=== PATIENT | male | born 1955 | race Caucasian/White ===

== ENCOUNTER 2019-07-13 10:12 | Outpatient (CLI) | payer OTHER, SELFPAY ==
--- NOTE | 2019-07-13 10:15 | XR_ITS ---
WS: [id number] KUB, 07/13/2019 Clinical Data: RENAL CALCULUS Comparison: KUB, 07/12/2018 Findings: No abnormal intraabdominal masses are seen. There is no dilatated small bowel or evidence of obstruc tion. The right inferior pole renal calculus is 0.85 cm and the left inferior pole renal calculus is 0.91 c m. No ureteral calculi are seen. The true pelvis is unremarkable. XR/XR KUB [id number] Impression: 1. No change in right renal calculus. 2. Slight increase in size of left renal calculus.
== END 2019-07-13 10:13 | disposition home or self-care (01) ==
LOC: RAD 10:15
PROVIDERS: Family Provider Family Medicine; PCP Family Medicine; Visit Provider Urology
DX: N20.0 Calculus of kidney (principal)
CPT/HCPCS: 74018; 81001

== ENCOUNTER 2019-11-21 12:56 | Outpatient (CLI) | payer MEDICARE, OTHER, SELFPAY ==
--- NOTE | 2019-11-21 14:34 | PFTS_ITS ---
Date of Study:11/21/19 Date of Dictation: MECHANICS: Forced vital capacity (FVC) is normal. Forced expiratory volume in one second (FEV1) is normal. FEV1/FVC is normal. FLOW VOLUME LOOP: There is no significant scooping. LUNG VOLUMES: Preserved inspiratory capacity with reduction in expiratory reserve volume. DIFFUSING CAPACITY FOR CARBON MONOXIDE: Normal INTERPRETATION: The pulmonary function tests are normal. Lung volumes are suggestive of obesity related changes. Gas exchange (DLCO) is normal. MTDD
== END 2019-11-21 12:57 | disposition home or self-care (01) ==
PROVIDERS: Family Provider Family Medicine; PCP Family Medicine; Visit Provider Family Medicine
DX: R06.00 Dyspnea, unspecified (principal)
CPT/HCPCS: 94010; 94729

== ENCOUNTER 2020-05-01 07:53 | Outpatient (CLI) | payer OTHER, MEDICARE, SELFPAY ==
--- NOTE | 2020-05-01 08:00 | USCV_ITS ---
Luis Francis Jr Age: 64 Gender: M : 1955 Exam Date: 05/01/2020 08:41 Ordering Phys: Jessica Mujica MD ([email or web address]) Technologist: Noris Vogt Exam Location[place] [facility] [place] Indication: SOB, DYSPNEA BP: 140 / 85 HR: 63 Rhythm: Sinus Technical Quality: Adequate MEASUREMENTS (Male / Female) Normal Values 2D ECHO LV Diastolic Diameter PLAX 4.6 cm 4.2 - 5.9 / 3.9 - 5.3 cm LV Systolic Diameter PLAX 2.5 cm LV Chamber Size 4.5 cm IVS Diastolic Thickness 1.1 cm 0.6 - 1.0 / 0.6 - 0.9 cm IVS Systolic Thickness 2.1 cm LVPW Diastolic Thickness 1.4 cm 0.6 - 1.0 / 0.6 - 0.9 cm LVPW Systolic Thickness 1.6 cm RV Chamber Size 3.5 cm LVOT Diameter 2.0 cm LV Ejection Fraction 2D Teich 76.9 % LV Ejection Fraction MOD 2C 45.1 % LV Ejection Fraction 2C AL 48.6 % LA Diameter 4.5 cm LA Width 3.5 cm LA Height 4.4 cm RA Width 3.4 cm RA Height 3.9 cm Aorta at Sinotubular Diameter 4.0 cm M-MODE LV Diastolic Diameter MM 5.5 cm 4.2 - 5.9 / 3.9 - 5.3 cm LV Systolic Diameter MM 3.6 cm LV Ejection Fraction MM Teich 62.7 % IVS Diastolic Thickness MM 1.4 cm 0.6 - 1.0 / 0.6 - 0.9 cm IVS Systolic Thickness MM 1.4 cm LVPW Diastolic Thickness MM 1.6 cm 0.6 - 1.0 / 0.6 - 0.9 cm LVPW Systolic Thickness MM 1.8 cm RV Diastolic Diameter MM 1.7 cm Aortic Annulus Diameter 3.9 cm LA Ao Ratio MM 1.3 MV E Point Septal Separation 0.7 cm DOPPLER AV Peak Velocity 171.0 cm/s LVOT Peak Velocity 97.0 cm/s AV Area Cont Eq vti 2.1 cm squared AV Area Cont Eq pk 1.9 cm squared MV Area PHT 3.2 cm squared Mitral E to A Ratio 0.8 MV E' Velocity 41.5 cm/s Mitral E to MV E' Ratio 9.5 Mitral E to LV E' Lateral Ratio 9.6 Mitral E to LV E' Septal Ratio 9.5 TR Peak Velocity 168.8 cm/s TR Peak Gradient 11.4 mmHg TR Mean Velocity 129.9 cm/s TR Mean Gradient 7.5 mmHg TR Velocity Time Integral 52.0 cm TV Peak E Velocity 64.0 cm/s Right Atrial Pressure 3.0 mmHg Pulmonary Artery Systolic Pressu 14.4 mmHg PV Peak Velocity 73.0 cm/s RV Acceleration Time 0.1 s RV Ejection Time 0.4 s RV AcT/ET 0.3 FINDINGS Left Ventricle Normal left ventricular size and systolic function, EF 55 %. Grade I/IV diastolic dysfunction (abnormal relaxation filling pattern), normal to mildly elevated filling pressures. Right Ventricle The right ventricle is normal in size and function. Right Atrium The right atrium is normal in size. Left Atrium Mildly increased left atrial size. Mitral Valve Thickened mitral valve. Aortic Valve Thickened aortic valve. Tricuspid Valve No gross abnormalities noted Pulmonic Valve Pulmonic valve not well visualized. Pericardium Normal pericardium without effusion. Aorta Plaque seen in the ascending aorta. CONCLUSIONS Normal left ventricular size and systolic function, EF 55 %. Grade I/IV diastolic dysfunction (abnormal relaxation filling pattern), normal to mildly elevated filling pressures. Mildly increased left atrial size. Thickened aortic and mitral valves. There is no pericardial effusion. There are no intracardiac masses. No previous study is available for comparison. Dr Jessica Mujica MD [facility] (Electronically Signed) Final Date: 01 May 2020 16:57 S
--- NOTE | 2020-05-01 08:18 | ECG_ITS ---
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 Interpretive Statements NAME OF STUDY: EXERCISE SESTAMIBI STRESS TEST INDICATION: Shortness of breath Baseline blood pressure of 133/91 mm Hg, heart rate of 70 beats per minute and oxygen saturation 95%. EKG showed normal sinus rhythm, normal axis with normal ST-Ts. The patient exercised for 8 minutes on a modified Antwan protocol. Patient attained a maximum heart rate of 132 beats per minute(85% of the maximum predicted heart rate) with a blood pressure at the peak exercise of 235/101 mm Hg. The EKG at the peak exercise revealed sinus tachycardia with no significant ST-T wave chnages. Patient did not have any chest pain or any significant arrhythmis with the exercise. The study was terminated due to exertional fatigue, dyspnea and protocol completion. During the recovery phase, there were no new changes. Blood pressure at the end of the recovery phase was 168/107 mm Hg with a heart rate of 72 beats per minute and oxygen saturation 94%. CONCLUSION: 1. Normal EKG response to treadmill exercise. 2. No exercise-induced chest pain or cardiac arrhythmia. 3. Good exercise tolerance, attained a maximum of 9.1 METs. Maximum VO2 of 31.8 mL/kg/min. 4. Baseline normal blood pressure with hypertensive response to exercise. 5. Perfusion scan will be documented separately. Electronically Signed On 05-02-2020 8:19:21 CLOTH WINDER by Vicky Miller M.D. [id number]
--- NOTE | 2020-05-01 08:19 | NMCV_ITS ---
NM jameel perf SPECT r/s* [id number] Luis Francis Jr Age: 64 Gender: M : 1955 Exam Date: 05/01/2020 09:19 Ordering Phys: Jessica Mujica MD ([email or web address]) Technologist: EDWARD Qiu Exam Location: [facility] Indications: SOB DYSPNEA STRESS TEST Please see separate stress test report in Ephiphany for full findings IMAGE PROTOCOL Rest/Stress 1 Exercise Day Radiopharmaceutical Dose (mCi) Administration Site Administered by Rest: Tc-99m 10.5 IV EDWARD Herrera Sestamibi Stress:Tc-99m 32.6 IV EDWARD Herrera Sestamibi Rest: 01-May-2020 60 Discovery 630 Stress: 01-May-2020 30 Discovery 630 Radiopharmaceutical was injected at 85 % maximum heart rate. Images obtained in supine and prone position. SPECT RESULTS Technical Quality: Excellent Raw Data Analysis: Normal Image Corrections: No attenuation or motion correction applied Summed Stress Score: 0 Summed Rest Score: 2 Summed Difference Score: 0 PERFUSION FINDINGS Patchy areas of slightly decreased tracer uptake in the anteroseptal and inferolateral wall regions. No significant reversibility was noted in these regions. FUNCTIONAL RESULTS (calculated via Gated SPECT) Stress Image LV EF (%): 53 Stress EDV (mL):133 TID: 0.97 Stress ESV (mL):62 FUNCTIONAL FINDINGS: Segmental wall motion analysis revealing mild hypokinesia of the LV apex IMPRESSIONS 1. Myocardial perfusion imaging revealing patchy areas of persistent decreased tracer uptake in the anteroseptal and inferolateral wall regions, suggestive of medical scarring versus attenuation artifacts. 2. Normal LV ejection fraction of 53%. 3. Wall motion normalities as mentioned above. 4. Mildly dilated LV cavity with an end-systolic volume of 62 mL. No significant coronary ischemia, based on the above finding Dr Jessica Mujica MD [facility] (Electronically Signed) Final Date: 01 May 2020 16:25 S
[2020-05-01 10:03] VITALS: BMI 31.9
[2020-05-01 10:36] VITALS: BP 168/107; PULSE 70
== END 2020-05-01 07:54 | disposition home or self-care (01) ==
LOC: CDL 07:59
PROVIDERS: PCP Family Medicine; Visit Provider Internal Medicine Cardiovascular Disease
DX: R06.02 Shortness of breath (principal); R06.00 Dyspnea, unspecified; I08.0 Rheumatic disorders of both mitral and aortic valves
CPT/HCPCS: 78452; 93017; 93306; A9500

== ENCOUNTER → 2021-09-15 08:33 | Outpatient (BNVA) | payer MEDICARE, SELFPAY | PROVIDERS: PCP Family Medicine; Visit Provider Internal Medicine Critical Care Medicine | DX: G47.10 Hypersomnia, unspecified (principal); J42 Unspecified chronic bronchitis; F17.210 Nicotine dependence, cigarettes, uncomplicated; E78.5 Hyperlipidemia, unspecified; I10 Essential (primary) hypertension | CPT/HCPCS: 99204 ==

== ENCOUNTER 2021-10-16 20:00 | Outpatient (CLI) | payer MEDICARE, SELFPAY | END 2021-10-16 20:01 | disposition home or self-care (01) | LOC: SLEEP 10-17 08:24 | PROVIDERS: PCP Family Medicine; Visit Provider Internal Medicine Critical Care Medicine | DX: G47.33 Obstructive sleep apnea (adult) (pediatric) (principal) | CPT/HCPCS: G0399 ==

== ENCOUNTER 2021-10-28 09:12 | Outpatient (CLI) | payer MEDICARE, SELFPAY ==
--- NOTE | 2021-10-28 09:26 | CT_ITS ---
WS: [id number] LDCT LUNG CANCER SCREENING TECHNIQUE: Noncontrast CT of the chest with coronal and sagittal reformatted images. CLINICAL INFORMATION: Lung cancer screening COMPARISON: None. DLP: 86.70 mGy.cm DIvol: Mean CTDIvol: 1.60 (mGy) All CT scans at [facility] use at least one of these dose optimization techniques: automat ed exposure control; mA and/or kV adjustment per patient size (includes targeted exams where dose is matched to clinical indication); or iterative reconstruction. FINDINGS: Tiny 3 mm noncalcified nodule subpleural LEFT upper lobe. No other suspicious pulmonary parenchymal o pacities. Aortic calcification. No mediastinal or hilar lymphadenopathy. Coronary calcification. No a xillary lymphadenopathy. Adrenal glands are normal. Normal GE junction. Hypertrophic changes thoracic spine. CT/CT lung screening [id number] IMPRESSION: LUNG-RADS: 2-Benign Appearance or Behavior FOLLOW UP: 12 Month: Continue annual screening with LDCT
== END 2021-10-28 09:13 | disposition home or self-care (01) ==
PROVIDERS: PCP Family Medicine; Visit Provider Internal Medicine Critical Care Medicine
DX: Z12.31 Encounter for screening mammogram for malignant neoplasm of breast (principal); F17.210 Nicotine dependence, cigarettes, uncomplicated
CPT/HCPCS: 71271

== ENCOUNTER → 2021-11-13 08:46 | Outpatient (BNVA) | payer MEDICARE, SELFPAY | PROVIDERS: PCP Family Medicine; Visit Provider Internal Medicine Critical Care Medicine | DX: J42 Unspecified chronic bronchitis (principal); G47.33 Obstructive sleep apnea (adult) (pediatric); F17.210 Nicotine dependence, cigarettes, uncomplicated; I10 Essential (primary) hypertension; E78.5 Hyperlipidemia, unspecified | CPT/HCPCS: 99214 ==

== ENCOUNTER 2021-12-08 20:00 | Outpatient (CLI) | payer MEDICARE, SELFPAY | END 2021-12-08 20:01 | disposition home or self-care (01) | LOC: SLEEP 12-09 06:40 | PROVIDERS: PCP Family Medicine; Visit Provider Internal Medicine Critical Care Medicine | DX: G47.33 Obstructive sleep apnea (adult) (pediatric) (principal) | CPT/HCPCS: 95811 ==

== ENCOUNTER → 2022-02-19 09:01 | Outpatient (BNVA) | payer MEDICARE, SELFPAY | PROVIDERS: PCP Family Medicine; Visit Provider Internal Medicine Critical Care Medicine | DX: J42 Unspecified chronic bronchitis (principal); G47.33 Obstructive sleep apnea (adult) (pediatric); F17.210 Nicotine dependence, cigarettes, uncomplicated; R53.83 Other fatigue; R41.89 Other symptoms and signs involving cognitive functions and awareness | CPT/HCPCS: 99214 ==

== ENCOUNTER → 2022-03-26 09:27 | Outpatient (BNVA) | payer MEDICARE, SELFPAY | PROVIDERS: PCP Family Medicine; Visit Provider Internal Medicine Critical Care Medicine | DX: J41.0 Simple chronic bronchitis (principal); G47.33 Obstructive sleep apnea (adult) (pediatric); F17.210 Nicotine dependence, cigarettes, uncomplicated | CPT/HCPCS: 99214 ==

== ENCOUNTER → 2022-04-01 08:30 | Outpatient (BNVA) | payer MEDICARE, SELFPAY | PROVIDERS: PCP Family Medicine; Visit Provider Otolaryngology | DX: G47.33 Obstructive sleep apnea (adult) (pediatric) (principal); H60.543 Acute eczematoid otitis externa, bilateral; H61.22 Impacted cerumen, left ear; F18.10 Inhalant abuse, uncomplicated; F17.210 Nicotine dependence, cigarettes, uncomplicated | CPT/HCPCS: 31575; 69210; 99204 ==

== ENCOUNTER 2022-08-10 06:56 | Outpatient (CLI) | payer OTHER, SELFPAY ==
--- NOTE | 2022-08-10 08:26 | USCV_ITS ---
Luis Francis Jr Age: 67 Gender: M : 1955 Exam Date: 08/10/2022 08:58 Ordering Phys: Mariajose Brewer Technologist: CT Exam Location: [facility] [place] Indication: bruit Risk Factors: Previous Vascular Surgery: Right Brachial BP: / Left Brachial BP: / Right Left Velocity (cm/s) Spectral Plaque Velocity (cm/s) Spectral Plaque Syst/Diast Broadening Syst/Diast Broadening 87.10/ 19.80 Prox CCA 61.00 / 18.80 76.90/ 18.60 Mid CCA 66.90 / 20.60 71.50/ 19.40 Distal CCA 55.60 / 14.50 121.30/37.50 Prox ICA 43.50 / 18.10 74.50/ 26.80 Mid ICA 58.60 / 18.70 61.80/ 20.20 Distal ICA 41.90 / 16.80 96.30 ECA 74.60 1.39 ICA/CCA 0.88 Antegrade Vertebral Antegrade 46.00/ 18.80 cm/s 34.20/ 14.80 cm/s Tri Subclavian Tri 97.50 153.8 0 FINDINGS Comparison: none available. Diffuse bilateral scattered calcified plaque and intimal thickening throughout the common carotid arteries and extending through the bifurcation. No significant elevation of systolic or diastolic velocities. Mild elevation of velocity right ICA. Anegrade vertebral arteries. CONCLUSIONS Bilateral ICA stenosis less than 50%. Mild bilateral carotid atherosclerosis. Dr. Mini Lewis DO (Electronically Signed) Final Date: 10 August 2022 11:34 S
== END 2022-08-10 06:57 | disposition home or self-care (01) ==
LOC: RAD 07:02
PROVIDERS: PCP Family Medicine; Visit Provider Nurse Practitioner
DX: R53.83 Other fatigue (principal); R09.89 Other specified symptoms and signs involving the circulatory and respiratory systems; I65.23 Occlusion and stenosis of bilateral carotid arteries
CPT/HCPCS: 93880

== ENCOUNTER → 2022-09-23 08:55 | Outpatient (BNVA) | payer MEDICARE, SELFPAY | PROVIDERS: PCP Family Medicine; Visit Provider Internal Medicine Pulmonary Disease | DX: G47.33 Obstructive sleep apnea (adult) (pediatric) (principal); J42 Unspecified chronic bronchitis; F17.210 Nicotine dependence, cigarettes, uncomplicated | CPT/HCPCS: 99214 ==

== ENCOUNTER 2022-10-26 11:02 | Outpatient (CLI) | payer MEDICARE, SELFPAY ==
--- NOTE | 2022-10-26 11:00 | CT_ITS ---
WS: [id number] LDCT LUNG CANCER SCREENING TECHNIQUE: Noncontrast CT of the chest with coronal and sagittal reformatted images. CLINICAL INFORMATION: Lung cancer screening COMPARISON: October 28, 2021 DLP: 90.91 mGy.cm DIvol: Mean CTDIvol: 1.80 (mGy) All CT scans at [facility] use at least one of these dose optimization techniques: automat ed exposure control; mA and/or kV adjustment per patient size (includes targeted exams where dose is matched to clinical indication); or iterative reconstruction. FINDINGS: Tiny 3-4 mm noncalcified nodule subpleural LEFT upper lobe is unchanged. Previous. No new suspicious pulmonary parenchymal opacities. No mediastinal or hilar lymphadenopathy. Parenchymal scarring RIGHT middle lobe with subsegmental atelectasis. Coronary calcification. Aortic calcification. Normal caliber thoracic aorta. No axillary lymphadenopa thy. Adrenal glands are normal. Normal GE junction. Hypertrophic changes thoracic spine. Small LEFT r enal cysts. CT/CT lung screening [id number] IMPRESSION: LUNG-RADS: 2-Benign Appearance or Behavior FOLLOW UP: 12 Month: Continue annual screening with LDCT
== END 2022-10-26 11:03 | disposition home or self-care (01) ==
PROVIDERS: PCP Family Medicine; Visit Provider Internal Medicine Pulmonary Disease
DX: Z12.2 Encounter for screening for malignant neoplasm of respiratory organs (principal); F17.210 Nicotine dependence, cigarettes, uncomplicated; G47.33 Obstructive sleep apnea (adult) (pediatric); J42 Unspecified chronic bronchitis
CPT/HCPCS: 71271

== ENCOUNTER 2023-03-01 08:42 | Emergency (ER) | payer OTHER, SELFPAY ==
[2023-03-01] VITALS (20 sets, daily range): BP systolic 138–218; BP diastolic 82–126; PULSE 72–88; RESP 14–33; TEMP 37; O2SAT 92–95; BMI 18.0
--- NOTE | 2023-03-01 08:43 | ECG_ITS ---
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 Measurements Intervals [place] Rate: 82 P: 46 ND: 142 QRS: 41 QRSD: 105 T: 110 QT: 358 QTc: 419 Interpretive Statements SINUS RHYTHM POSSIBLE LEFT ATRIAL ENLARGEMENT [-0.1mV P-WAVE IN V1/V2] MODERATE ST DEPRESSION [0.05+ mV ST DEPRESSION] ABNORMAL QRS-T ANGLE [QRS-T AXIS DIFFERENCE > 60] No previous ECG available for comparison Electronically Signed On 03-01-2023 9:16:56 CDT by Vicky Miller M.D. [email or web address]/OM/[id number]
--- NOTE | 2023-03-01 08:43 | XR_ITS ---
WS: [id number] PORTABLE CHEST HISTORY: cp COMPARISON: 01/25/2017 Moderate hyperinflation and chronic emphysema. No mass or pneumonia. No pleural effusion or pneumotho rax. Cardiac size: Normal. Mediastinum/Aorta: Mild atherosclerosis aorta. Mild AC joint arthritis. IMPRESSION: Chronic emphysema. No pneumonia.
--- NOTE | 2023-03-01 08:59 | W.ED.CHESTPA ---
HPI - Chest Pain General: Chief Complaint: Chest Pain Stated Complaint: Chest pain Time Seen by Provider: 03/01/23 08:44 Source: patient Mode of arrival: ambulatory Limitations: no limitations History of Present Illness: 67-year-old male states been having chest pain over the last week states had some pressure pain that goes down his arm states pain is currently resolved he denies any worsening or improving factors. No known history of heart disease. Has a history of hypertension along with high cholesterol. Associated symptoms: Deny abdominal pain, dyspnea, fever(s), nausea or vomiting Review of Systems Const: Denies: fever(s), chills, body aches or change in appetite ENMT: Denies: throat pain or dental pain Card: Reports: chest pain Resp: Denies: dyspnea GI: Denies: abdominal pain, nausea, vomiting or diarrhea : Denies: dysuria Musc: Denies: neck pain or back pain Skin/Breast: Denies: rash Neuro: Denies: headache(s) PFSH ED PFSH: Medical History Abuse of smoked substance Benign essential HTN CARVALHO (dyspnea on exertion) Dyslipidemia (high LDL; low HDL) Renal calculus, bilateral Uric acid urolithiasis Surgical History History of hand surgery RIGHT History of rotator cuff surgery BILATERAL Hx of cataract surgery PROSTHETIC LENS PLACED Hx of circumcision Family History Other CAD (coronary artery disease) Diabetes Pacemaker Social History Smoking and tobacco status: current every day smoker (1.5 ppd) cigarettes Packs smoked per day: 1.5 Years cigarettes smoked: 50 [ Other cigarette details: started at age 14 years.] Alcohol intake: current Substance/Drug Use: never Adopted: No Caregiver/support person: No Lives independently: No Household members: spouse Marital status: Current occupational status: employed Physical Exam Const: COMMON NORMALS: patient oriented x3 HENMT: COMMON NORMALS: normocephalic and atraumatic HEAD & SCALP: normocephalic and atraumatic Eye: COMMON NORMALS: Equal, round and reactive pupils present and EOMs intact bilaterally PUPIL: Yes Equal, round and reactive pupils present Neck/C-Spine: COMMON NORMALS: full ROM and supple Chest: COMMONS NORMALS: normal inspection of the chest and normal palpation of entire chest wall Resp: COMMON NORMALS: normal respiratory effort, No retractions, No use of accessory muscles and clear to auscultation bilaterally AUSCULTATION: clear to auscultation bilaterally Cardio: COMMON NORMALS: regular rate, regular rhythm and No murmurs present (Cardio) RATE: regular rate RHYTHM: regular rhythm GI: COMMON NORMALS: Normal to inspection, nondistended, normoactive bowel sounds present, Soft to palpation, non-tender and no masses PALPATION: Yes Soft to palpation Extremity: COMMON NORMALS: normal to inspection and full ROM Neuro: COMMON NORMALS: patient oriented x3, moves all extremities and no focal motor deficits Psych: COMMON NORMALS: mental status grossly normal, Normal thought process present and cooperative THOUGHT PROCESS: Normal thought process present Skin: COMMON NORMALS: no rashes or lesions noted and no wounds GENERAL SKIN EXAM: no rashes or lesions noted Course Vital Signs: Vital signs: Vital Signs Temperature 98.6 F 03/01/23 08:49 Pulse Rate 74 03/01/23 10:35 Respiratory Rate 27 H 03/01/23 10:35 Blood Pressure 138/82 03/01/23 10:35 Pulse Oximetry 93 03/01/23 10:35 Oxygen Delivery Me thod Room Air 03/01/23 08:49 MDM - Chest Pain Medical Decision Making Patient presents here with chest pain has been going on for weeks has been pain-free here both his heart enzymes here are normal. 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 Lab Data I reviewed the patient's lab results. 03/01/23 08:52 03/01/23 08:52 Laboratory Results WBC 11.04 10^3/uL (3.29-11.43) 03/01/23 08:52 RBC 6.32 10^6/uL (3.85-5.65) H 03/01/23 08:52 Hgb 19.50 g/dL (11.27-16.99) H 03/01/23 08:52 Hct 59.0 % (37-53) H 03/01/23 08:52 MCV 93.4 fl (82-101) 03/01/23 08:52 MCH 30.9 pg (27-33) 03/01/23 08:52 MCHC 33.1 g/dL (30-55) 03/01/23 08:52 RDW 13.7 % (12.1-15.1) 03/01/23 08:52 Plt Count 210 10^3/cmm (157-399) 03/01/23 08:52 MPV 10.1 fL (7.4-10.4) 03/01/23 08:52 Neut % (Auto) 72.5 % 03/01/23 08:52 Lymph % (Auto) 18.6 % 03/01/23 08:52 [place] % (Auto) 6.0 % 03/01/23 08:52 Eos % (Auto) 1.4 % 03/01/23 08:52 Baso % (Auto) 0.7 % 03/01/23 08:52 Neut # (Auto) 8.01 10^3/uL (1.8-7.7) H 03/01/23 08:52 Lymph # (Auto) 2.1 10^3/uL (0.8-4.8) 03/01/23 08:52 [place] # (Auto) 0.7 10^3/uL (0.2-0.9) 03/01/23 08:52 Eos # (Auto) 0.2 10^3/uL (0.0-0.8) 03/01/23 08:52 Baso # (Auto) 0.1 10^3/uL (0.0-0.1) 03/01/23 08:52 Nucleated RBC % (auto) 0 % 03/01/23 08:52 Nucleated RBCs # 0.0 /100WBC 03/01/23 08:52 PT 12.20 SECONDS (12.1-14.9) 03/01/23 08:52 INR 0.88 (0.8-1.2) 03/01/23 08:52 Sodium 134 mmol/L (136-145) L 03/01/23 08:52 Potassium 3.8 mmol/L (3.5-5.1) 03/01/23 08:52 Chloride 101 mmol/L (98-107) 03/01/23 08:52 Carbon Dioxide 22 mmol/L (22-29) 03/01/23 08:52 Anion Gap 14.8 (5-19) 03/01/23 08:52 BUN 23 mg/dL (8-23) 03/01/23 08:52 Creatinine 1.0 mg/dL (0.7-1.2) 03/01/23 08:52 GFR Calculation 74.1 mL/min (90-130) L 03/01/23 08:52 Glucose 198 mg/dL (65-115) H 03/01/23 08:52 Calculated Osmolality 287 mOsm/kg (285-295) 03/01/23 08:52 Calcium 9.0 mg/dL (8.5-10.5) 03/01/23 08:52 Total Bilirubin 0.5 mg/dL (0.15-1.2) 03/01/23 08:52 AST 13 U/L (0-40) 03/01/23 08:52 ALT 18 U/L (0-41) 03/01/23 08:52 Alkaline Phosphatase 78 U/L (40-130) 03/01/23 08:52 Troponin T Baseline 13 ng/L (0-15) 03/01/23 08:52 Troponin T 120 Minute 14.84 ng/L (0-15) 03/01/23 10:39 Total Protein 7.1 g/dL (6.6-8.7) 03/01/23 08:52 Albumin 4.2 g/dL (3.5-5.2) 03/01/23 08:52 Globulin 2.9 g/dL (1.3-4.6) 03/01/23 08:52 All radiology interpretation(s) finalized by discharge EKG Data EKG 1: I personally reviewed and interpreted this EKG as follows: EKG interpretation date: 03/01/23 EKG interpretation time: 08:45 Interpretation: nsr hr [address] or t wave abnormalities qrs 105 qtc 396 Discharge Plan Discharge Patient Disposition: Home Clinical Impression: Chest pain Condition: Stable Prescriptions: No Action oxycodone-acetaminophen [Percocet] 5-325 mg tablet 1 tab PO TID PRN (Reason: Pain) armodafinil 200 mg tablet 200 mg PO QAM PRN (Reason: unknown) [facility] Vits See Rx Instructions .ROUTE .COMPLEX Rx Instructions: takes 4 differnet types of vitamins from [facility] (pt unsure what the names of them are, states not had in a few days) trazodone 100 mg Tablet 50 mg PO BEDTIME hydrochlorothiazide 25 mg Tablet 25 mg PO QAM Trt (Otc Testosterone Therapy) See Rx Instructions .ROUTE .COMPLEX Rx Instructions: DIRECTED EVERY 7 DAYS Discharge Orders: Discharge ED (Routine); Ordered 03/01/23 Ordered By: Simone Mederos Referrals: Jessica Mujica MD [Physician] - 1-3 days Mariajose Brewer FNP [Primary Care Provider] - Discharge Diet: Advance as tolerated Discharge Activity: Resume usual activity Patient Instructions: Chest Pain (ED) Coding Level of Care Code ED 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
[2023-03-01 09:02] LABS: Basophils # 0.1 10^3/uL (0.0-0.1); Basophils % 0.7 %; Eosinophils # 0.2 10^3/uL (0.0-0.8); Eosinophils % 1.4 %; Lymphocytes # 2.1 10^3/uL (0.8-4.8); Lymphocytes % 18.6 %; Mean Corpuscular HGB Conc 33.1 g/dL (30-55); Mean Corpuscular Hemoglobin 30.9 pg (27-33); Mean Corpuscular Volume 93.4 fl (82-101); Mean Platelet Volume 10.1 fL (7.4-10.4); Monocytes # 0.7 10^3/uL (0.2-0.9); Neutrophils # 8.01 10^3/uL (1.8-7.7); Neutrophils % 72.5 %; Nucleated Red Blood Cells % 0 %; Platelet Count 210 10^3/cmm (157-399); Red Blood Count 6.32 10^6/uL (3.85-5.65); Red Cell Distribution Width 13.7 % (12.1-15.1); White Blood Count 11.04 10^3/uL (3.29-11.43)
[2023-03-01 09:15] LABS: INR 0.88 (0.8-1.2)
[2023-03-01] MEDS: hyDRALAzine 20 mg/mL INJ 1 mL 10 MG IVP (09:16)
[2023-03-01 09:21] LABS: Troponin(5th) Baseline 13 ng/L (0-15)
[2023-03-01 09:24] LABS: Alanine Aminotransferase 18 U/L (0-41); Albumin Level 4.2 g/dL (3.5-5.2); Alkaline Phosphatase 78 U/L (40-130); Anion Gap 14.8 (5-19); Aspartate Amino Transferase 13 U/L (0-40); Blood Urea Nitrogen 23 mg/dL (8-23); Carbon Dioxide 22 mmol/L (22-29); Chloride 101 mmol/L (98-107); Globulin 2.9 g/dL (1.3-4.6); Glomerular Filtration Rate 74.1 mL/min (90-130); Glucose 198 mg/dL (65-115); Osmolality Calculated 287 mOsm/kg (285-295); Potassium 3.8 mmol/L (3.5-5.1); Sodium 134 mmol/L (136-145); Total Bilirubin 0.5 mg/dL (0.15-1.2); Total Protein 7.1 g/dL (6.6-8.7)
[2023-03-01] MEDS: labetalol 5 mg/mL SDV 20mL 10 MG IVP (10:21)
--- NOTE | 2023-03-01 10:43 | ECG_ITS ---
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 Measurements Intervals [place] Rate: 70 P: 32 [place]: 142 QRS: 21 QRSD: 109 T: 147 QT: 413 QTc: 446 Interpretive Statements SINUS RHYTHM POSSIBLE LEFT ATRIAL ENLARGEMENT [-0.1mV P-WAVE IN V1/V2] ST DEVIATION AND MODERATE T-WAVE ABNORMALITY, CONSIDER LATERAL ISCHEMIA [-0.1+ mV T-WAVE IN I/aVL/V5/V6] Compared to ECG 03/01/2023 08:45:35 T-wave abnormality now present Possible ischemia now present ST (T wave) deviation no longer present Electronically Signed On 03-01-2023 21:37:45 CDT by Vicky Miller M.D. [id number]
--- NOTE | 2023-03-01 10:58 | PC.PHAR ---
PT STATES HE TAKES CARE OF HIS OWN MEDICATIONS-PT STATES HE TAKES NUVIGEL 200MG QD PRN- pt states takes 4 differnet types of vitamins from [facility] and [employer] (pt unsure what the names of them are, states not had in a few days)-pt states he uses some kind of trt (testosterone therapy) states he uses once a week states not taken in a month states waiting for it to come in the mail-notes are made in the pharmacy comments-
[2023-03-01 11:20] LABS: Troponin 5 2HR 14.84 ng/L (0-15); Troponin 5 2HR Delta 1.84 ABS# (0-10)
--- NOTE | 2023-03-01 11:48 | PC.SOCIAL ---
Cardiology Referral Referral message sent to clinic; clinic to contact patient with appt date/time.
== END 2023-03-01 11:42 | disposition home or self-care (01) ==
PROVIDERS: Emergency Provider Emergency Medicine; PCP Nurse Practitioner
DX: R07.9 Chest pain, unspecified (principal); F17.210 Nicotine dependence, cigarettes, uncomplicated; I10 Essential (primary) hypertension; E78.5 Hyperlipidemia, unspecified
CPT/HCPCS: 36415; 71045; 80053; 84484; 85025; 85610; 93005; 96374; 96375; 99285; J0360; J3490

== ENCOUNTER → 2023-03-08 10:24 | Outpatient (BNVA) | payer OTHER, SELFPAY | PROVIDERS: PCP Nurse Practitioner; Visit Provider Internal Medicine Cardiovascular Disease | DX: R07.9 Chest pain, unspecified (principal); I10 Essential (primary) hypertension; E78.5 Hyperlipidemia, unspecified; R06.00 Dyspnea, unspecified; G47.33 Obstructive sleep apnea (adult) (pediatric); F17.210 Nicotine dependence, cigarettes, uncomplicated | CPT/HCPCS: 99214 ==

== ENCOUNTER → 2023-04-05 08:51 | Outpatient (BNVA) | payer OTHER, SELFPAY | PROVIDERS: PCP Nurse Practitioner; Visit Provider Internal Medicine Pulmonary Disease | DX: G47.33 Obstructive sleep apnea (adult) (pediatric) (principal); F17.210 Nicotine dependence, cigarettes, uncomplicated; J41.0 Simple chronic bronchitis; Z99.89 Dependence on other enabling machines and devices | CPT/HCPCS: 99214 ==

== ENCOUNTER 2023-04-28 10:18 | Outpatient (CLI) | payer OTHER, SELFPAY ==
--- NOTE | 2023-04-28 10:23 | CT_ITS ---
WS: [id number] CT HEAD TECHNIQUE: Noncontrast CT of the head obtained from the skullbase to the vertex. CLINICAL INFORMATION: BURNING MOUTH SYNDROME COMPARISON: None. DLP: 1134.[address] scans at [facility] use at least one of these dose optimization techniques: automated e xposure control; mA and/or kV adjustment per patient size (includes targeted exams where dose is matc hed to clinical indication); or iterative reconstruction. FINDINGS: No evidence of intracranial hemorrhage or mass effect. Ventricular system and basal cisterns are sweeney nt. Mild small vessel changes with moderate parenchymal volume loss. No extra-axial fluid collections . No evidence of mass or mass effect. Mild vascular calcification. Paranasal sinuses are well aerated. Mild mucosal thickening in the mastoid air cells. IMPRESSION: 1. No evidence of intracranial hemorrhage or mass effect. 2. Mild small vessel changes. Moderate parenchymal volume loss. 3. Mild intracranial vascular calcification. 4. No acute intracranial findings.
== END 2023-04-28 10:19 | disposition home or self-care (01) ==
LOC: RAD 10:19
PROVIDERS: PCP Nurse Practitioner; Visit Provider Nurse Practitioner
DX: R20.8 Other disturbances of skin sensation (principal); I67.2 Cerebral atherosclerosis
CPT/HCPCS: 70450

== ENCOUNTER → 2023-06-09 12:40 | Outpatient (BNVA) | payer OTHER, SELFPAY | PROVIDERS: PCP Nurse Practitioner; Visit Provider Nurse Practitioner Family | DX: I10 Essential (primary) hypertension (principal); R07.9 Chest pain, unspecified; F17.210 Nicotine dependence, cigarettes, uncomplicated | CPT/HCPCS: 99214 ==

== ENCOUNTER → 2023-06-15 09:16 | Outpatient (BNVA) | payer OTHER, SELFPAY | PROVIDERS: PCP Nurse Practitioner; Referring Provider Nurse Practitioner; Visit Provider Surgery | DX: Z12.11 Encounter for screening for malignant neoplasm of colon (principal) | CPT/HCPCS: 99203 ==

== ENCOUNTER 2023-08-02 08:17 | Outpatient (CLI) | payer MEDICARE, SELFPAY ==
--- NOTE | 2023-08-02 08:22 | USCV_ITS ---
Luis Francis Age: 68 Gender: M : 1955 Exam Date: 08/02/2023 09:05 Ordering Phys: Mariajose Brewer Technologist: [place] [facility] [place] HISTORY: Diameter (cm) AP x Transverse x Length Velocity (cm/s) Waveform Prox Aorta: 2.10 x 2.00 x 84.40 Mid Aorta: 2.00 x 2.00 x 75.60 Distal Aorta: 2.50 x 2.60 x 73.40 Right Iliac Prox: 1.70 x 1.70 x 79.80 Left Iliac Prox: 1.80 x 1.60 x 67.70 Stent Prox Landing x x Aneurysmal Sac Max x x Lt Lat Sac Dim Rt Lat Sac Dim Stent Dist Landing x x Right Iliac Stent x x Left Iliac Stent x x Right Renal Art Left Renal Art FINDINGS: CONCLUSIONS Slightly ectatic Distal abdominal aorta measuring 2.5 x 2.6cm Normal iliac arteries Ashu Amato MD (Electronically Signed) Final Date: 02 August 2023 11:07 S
== END 2023-08-02 08:18 | disposition home or self-care (01) ==
LOC: RAD 08:18
PROVIDERS: PCP Nurse Practitioner; Visit Provider Nurse Practitioner
DX: Z13.6 Encounter for screening for cardiovascular disorders (principal); I77.811 Abdominal aortic ectasia
CPT/HCPCS: 76706

== ENCOUNTER 2023-08-03 07:59 | Outpatient (CLI) | payer MEDICARE, SELFPAY | END 2023-08-03 08:00 | disposition home or self-care (01) | LOC: RT 07:59 | PROVIDERS: PCP Nurse Practitioner; Visit Provider Internal Medicine Pulmonary Disease | DX: R06.02 Shortness of breath (principal) | CPT/HCPCS: 94010; 94729 ==

== ENCOUNTER 2023-08-09 07:28 | Outpatient (CLI) | payer OTHER, SELFPAY ==
[2023-08-09] VITALS (8 sets, daily range): BP systolic 140–153; BP diastolic 93–98; PULSE 63–70; RESP 14–22; TEMP 36.7; O2SAT 90–96; BMI 33.6
--- NOTE | 2023-08-09 06:00 | XACV_ITS ---
Exam Room: 2 Ht: 170 cm Wt: 98 kg BSA: 2.18 m2 Gender: Male : 1955 Any Known Allergies: Other Exam Priority: Routine Procedure(s): Procedure Description: Diagnostic procedure Procedure Description: Left Heart Catheterization Procedure Description: Left ventriculography Procedure Description: Miscellaneous Procedure Description: ACT Procedure Description: Coronary Angiography Procedure Description: Pressure Wire Diagnostic Cath Status: Elective Diagnostic Findings * The left main is a medium caliber short vessel with no significant stenotic lesions. * The left anterior descending artery is a medium caliber vessel which appears to wrap around the LV apex. The artery appears to be tortuous throughout its course. The first diagonal branch appears to be totally occluded near the ostium. The second diagonal and the first septal fan engine engineer branches were found to be relatively small caliber vessels with 20 to 30% tubular narrowing near the ostium. The mid and the distal left anterior descending artery was found to have minimal intimal irregularities. No other significant stenotic lesions were noted. * The left circumflex artery is a medium caliber vessel which appears to have around 50 to 60% segmental narrowing in the midportion. No other significant lesions were noted. The artery was found to be somewhat tortuous in this area. The proximal circumflex artery was found to have an area of eccentric narrowing of 20 to 30%. * The right coronary artery is a medium caliber dominant vessel which was found to have 30 to 40% diffuse irregular narrowing throughout the artery. The PDA and the PLV branches are found to have minimal intimal irregularities. PCI Status: Elective Interventional Findings * Procedure detail: We engaged left main artery with XB 3.0 guide catheter. IV heparin was administered to maintain anticoagulation. After normalization, IFR wire was advanced into distal left circumflex artery. iFR value of 0.97 was obtained. As it was nonischemic, medical therapy was decided. Wire was removed and final angiogram performed. No complications seen. Guidewire removed. Patient left the Car Rental Agent in a stable condition.. Conclusions 1. 68-year-old white male with multiple risk factors for coronary disease, presenting with complaints of chest pain and shortness of breath. Patient had a Myocardial perfusion imaging in 2019 which was essentially unremarkable. He had an EKG done which revealed T inversions in lead I and aVL. In view of the patient's ongoing and worsening symptoms, multiple risk factors, in order to further evaluate the coronary status, and cardiac catheterization was recommended. Patient underwent left heart catheterization with left and right coronary angiogram and LV angiogram today. The findings are as follows. 2. Short left main with no significant lesions. Total occlusion of the first diagonal branch of the left anterior sending artery. Mild diffuse disease in the other vessels. Around 60% lesion in the mid circumflex artery. LV ejection fraction of 50%. LVEDP of 17 mmHg. Diffuse hypokinesis of the anteroapical region by LV gram. Based on this angiogram findings, in order to better evaluate the functional significance of the circumflex lesion, and IFR was thought to be appropriate. I reviewed and discussed the angiogram findings with Dr. Saini. Dr. Saini concurred with this plan. At this point, further management of this patient was taken over by Dr. Saini. 3. Moderate mid left circumflex artery s/p iFR that is non-ischemic. Medical therapy. Recommendations * Aggressive medical therapy. * Outpatient cardiology follow up in 2-4 weeks. Diagnostic RX Recommendation: other cardiac therapy w/o CABG/PCI Ventriculography Ejection Fraction: 50.0 % LV EDP: 17 mmHg Left Ventriculography Findings: * The LV gram was performed the HUANG projection. LV cavity appears to be of normal size. There was mild diffuse hypokinesia of the anteroapical region. Overall ejection fraction around 50%. No filling defects are noted. No significant mitral valve prolapse or any mitral regurgitation. Pressures Phase:Rest AO : 95 / 68 ( 81 ) @ 9:00:00 AM 101 / 72 ( 86 ) @ 9:06:00 AM 137 / 80 ( 104 ) @ 9:14:00 AM 142 / 75 ( 104 ) @ 9:14:00 AM 127 / 80 ( 100 ) @ 9:26:00 AM LV : 134 / 8 / 17 @ 9:13:00 AM 130 / 8 / 19 @ 9:14:00 AM 134 / 8 / 19 @ 9:14:00 AM Valves Phase:DefaultPhase AV : 0.0 @ 9:43:33 AM AV Mean Gradient: 0.0 @ 9:43:33 AM 0.0 @ 9:43:33 AM Clinical Evaluation EBL: 5mL-10mL Procedural Details Procedure Consent Obtained. Pre-Procedure Time Out. Identified patient by full name and date of as verbalized by the patient/guarantor. Does the consent match the physician's order: Yes. Accurate & Complete Informed Consent: Yes. Inpatient/Outpatient History & Physical on Chart: Yes. If H&P is completed, is and addenduem needed: No. Visualize and Verify Site with Patient/Guarantor: N/A. Relevant Radiology Images available: Yes. IV Site on Arrival: 20 gauge in the left anticubital. IV Fluids: 0.9% NaCl at KVO. 0 mL infused prior to medical lab technician. Pre Procedural Pulses: bilateral dorsalis pedis was 2+. Pre Procedural Pulses: bilateral radial was 3+. Pre Procedural Pulses: right posterior tibial was 2+. Pre Procedural Pulses: left posterior tibial was 1+. Oxygen started at 2liters/min via nasal canula. Patient's family in CPRU Room #3. Dr. Mujica will update at the completion of the procedure. [facility] Clinical Fraility Score: 3: Managing Well. Car Rental Agent Indications: New Onset Angina. Chest Pain Symptom Assessment: Typical Angina Symptoms. Cardiovascular Instability: No. The risks, benefits, and alternatives of sedation and/or procedure were discussed by physician. The patient agrees to continue. Procedure started. Correct patient, site and procedure confirmed by cath team. PERRLA. Strong, equal hand green chain puller bilaterally. Lungs clear x 5 lobes. right groin was prepped with chloroprep then draped in the usual sterile fashion. right radial was prepped with chloroprep then draped in the usual sterile fashion. Physician notified. Baseline sample Acquired. HR: 64 BPM. Equipment: 6F - Radial. Cardiac Cath Pack. [employer] Manifold Kit Model BT 2000. Heparinized Saline (2 units/mL), 1000 mL bag. Physician arrived. Physician scrubbed in. Immediate Pre-Procedure Time Out. Correct Patient: Yes; Correct Procedure: Yes; Correct Site: Yes; Correct Patient Position: Yes; Correct Supplies: Yes; Dried Flammable Prep: Yes; Blood Products Available: N/A;. Lidocaine 1% infiltrated to the right radial. Arterial access obtained. A 5 mozambican Raul catheter in over the exchange J wire. Multiple views taken of left coronary artery. Catheter redirected to the RCA. Multiple views taken of right coronary artery. Catheter removed over the exchange J wire. A 5 mozambican Angled Pig catheter in over the exchange J wire. Dr. Saini here to view cineography. Catheter removed over the exchange J wire. A 5 mozamb[place] JR4 catheter in over the exchange J wire. Multiple views taken of right coronary artery. EDP Sample taken: LV 134/8,17; HR: 87 BPM; SpO2: 96%. LV gram performed in HUANG @ 10 mL/second for a total of 30 mL. EDP Sample taken: LV 130/8,19; HR: 68 BPM; SpO2: 98%. Pullback taken: LV 134/8,19; AO 137/80(104); Mean: 0mmHg, Peak to Peak: 0mmHg, SEP: 15sec/min; HR: 68 BPM; SpO2: 98%. Catheter removed over the exchange J wire. Dr. Mujica scrubbed out. Add inventory: endoflator, co-pest control pilot, iFR wire. Dr. Saini scrubbed in. 6 mozambican XB 3 guide catheter was inserted over the exchange J wire. iFR guidewire was advanced through the guide catheter to lesion in the mid Circ. iFR of mid CX = 0.97 with a pullback of 0.96. iFR wire out. ACT drawn. Results 327 seconds. Therapeutic limits - pre-heparin administration 90-150 seconds and monitoring heparin during a vascular procedure >250 seconds. Guide catheter out over the exchange J wire. Sheath upsized to a 6 Fr. A TR Band was successful obtaining hemostatsis at the Right Radial artery insertion site. Post Procedure: Pulses reassessed and unchanged. PERRLA. Strong, equal hand green chain puller bilaterally. No VTE prophylaxis required. Medication's Wasted: Nitro = 49.8 mg. Medication's Wasted: Heparin = 2000 units. Medication's Wasted: Other = Versed 2 mg. Medication's Wasted: Other = Fentanyl 25mcg. Total IV fluids: 330 mL. Post-op diagnosis: Moderate mid CX stenosis with negative iFR. Complications: none. Estimated blood loss: 5mL-10mL. Responsiveness - Normal response to verbal stimuli; alert and oriented, PERRLA. Airway - Unaffected, no intervention required; spontaneous ventilation. Circulation: W/N/L, pulses unchanged. Nausea/Vomiting: No. Procedure completed. Patient transferred by wheelchair to CPRU. Vital chart was stopped. Access Site Site: Right Radial artery Sheath Size: 6 Fr Hemostasis Method: TR Band Hemostasis Success: Successful Procedure Medications Start: 8:43 AM Stop: 8:43 AM Medication: 0.9% Saline Amount: 250 ml Route: I.V. bolus Start: 8:44 AM Stop: 8:44 AM Medication: Versed Amount: 1 mg Route: I.V. Start: 8:44 AM Stop: 8:44 AM Medication: Fentanyl Amount: 25 mcg Route: I.V. Start: 8:54 AM Stop: 8:54 AM Medication: Versed Amount: 1 mg Route: I.V. Start: 8:55 AM Stop: 8:55 AM Medication: Fentanyl Amount: 25 mcg Route: I.V. Start: 8:57 AM Stop: 8:57 AM Medication: Versed Amount: 1 mg Route: I.V. Start: 8:58 AM Stop: 8:58 AM Medication: Nitrogylcerin Amount: 200 mcg Route: I.A. Start: 8:58 AM Stop: 8:58 AM Medication: Verapamil Amount: 5 mg Route: I.A. Start: 8:59 AM Stop: 8:59 AM Medication: 0.9% Saline Amount: 125 ml/hr Route: I.V. drip Start: 9:00 AM Stop: 9:00 AM Medication: Heparin Amount: 5000 units Route: I.V. Start: 9:11 AM Stop: 9:11 AM Medication: Versed Amount: 1 mg Route: I.V. Start: 9:12 AM Stop: 9:12 AM Medication: Fentanyl Amount: 25 mcg Route: I.V. Start: 9:24 AM Stop: 9:24 AM Medication: Heparin Amount: 4000 units Route: I.V. I, the attending physician, have reviewed and verified all procedure medications. Yes, all medications given per verbal order History/Risk Factors Hypertension: Yes Dyslipidemia: Yes Peripheral Arterial Disease (PAD): No Myocardial Infarction (OR): No Obesity: Yes Renal Disease: No Tobacco Use: Current/Recent(w/in 1 year) Prior Interventions PCI: No CABG: No Valve Surgery: No Report Signatures Interventional Workflow Finalized by Mitchell Saini MD on 08/14/2023 11:04 AM Diagnostic Workflow Finalized by Dr Jessica Mujica MD [facility] on 08/10/2023 05:29 PM
[2023-08-09] MEDS: aspirin 325 mg Tablet PO (07:45)
[2023-08-09] MEDS: diphenhydrAMINE 50 mg Capsule PO (07:45)
[2023-08-09 07:54] LABS: Basophils # 0.1 10^3/uL (0.0-0.1); Basophils % 0.7 %; Eosinophils # 0.2 10^3/uL (0.0-0.8); Eosinophils % 1.3 %; Lymphocytes # 3.4 10^3/uL (0.8-4.8); Lymphocytes % 22.5 %; Mean Corpuscular HGB Conc 33.8 g/dL (30-55); Mean Corpuscular Hemoglobin 31.1 pg (27-33); Mean Corpuscular Volume 92.3 fl (82-101); Mean Platelet Volume 10.3 fL (7.4-10.4); Monocytes # 1.2 10^3/uL (0.2-0.9); Neutrophils # 9.44 10^3/uL (1.8-7.7); Nucleated Red Blood Cells % 0 %; Platelet Count 239 10^3/cmm (157-399); Red Blood Count 6.07 10^6/uL (3.85-5.65); Red Cell Distribution Width 14.7 % (12.1-15.1); White Blood Count 14.99 10^3/uL (3.29-11.43)
--- NOTE | 2023-08-09 08:09 | PM.HP ---
Providers/Chief Complaint Admitting Physician: NARESH Mujica MD/cardiology Primary Care Provider: BRENNA Ortega Chief Complaint: R06.0, I25.10 History of Present Illness Luis Francis Jr is a 68 year old male with a history of atherosclerotic heart disease, high blood pressure, obstructive sleep apnea, smoking abuse, presenting with increasing shortness of breath and chest symptoms. He had a Myocardial perfusion imaging in 2019 which revealed some areas of fixed defect with no reversible defects. He had a mildly dilated LV cavity with some wall motion of normality, based on the perfusion scan. Echocardiogram revealed normal LV ejection fraction. Patient continues to have chest discomfort and shortness of breath. He had a multiple physician visits with complaints of chest pain or shortness of breath. He had an EKG done in February of last year which revealed a T inversions in lead I and aVL. I recommended an angiogram at that time but the patient wanted to wait. He was seen by Cindy Mcdaniel, nurse practitioner in May. He was complaining of more shortness of breath and fatigue. Currently seems to be feeling okay except for dyspnea on exertion. No orthopnea PND. Review of Systems Narrative: CONSTITUTIONAL: No fever or chills. EYES: No blurring of vision or other visual disturbances lately. ENT: No hoarseness of voice, auditory disturbances or sore throat. He had some teeth pulled recently and was given antibiotic and steroid CARDIOVASCULAR: As mentioned above. RESPIRATORY: No significant cough. GASTROINTESTINAL: No hematemesis or melena. GENITOURINARY: No dysuria or hematuria. INTEGUMENTARY: No skin rashes or history of skin cancer. NEURO: No transient ischemic attacks or amaurosis. PSYCHIATRIC: No history of psychosis or major depression. HEMATOLOGIC: No bleeding disorders or significant anemia. ENDOCRINE: No history of polyuria or polydipsia. MUSCULOSKELETAL: No recent joint pain or swelling. ALLERGY/IMMUNOLOGY: As mentioned above. Medications/Allergies Home Medications Medication Instructions Recorded Confirmed Last Taken Type oxycodone-acetaminophen 5 mg-325 1 tab PO TID PRN Pain 07/13/19 08/09/23 08/09/23 05:30 History mg tablet (Percocet) hydrochlorothiazide 25 mg tablet 25 mg PO QAM 03/01/23 08/09/23 08/09/23 05:30 History trazodone 100 mg tablet 50 mg PO BEDTIME 03/01/23 08/09/23 Unknown History metoprolol tartrate 25 mg tablet 25 mg PO BID 30 days #60 tabs 03/08/23 08/09/23 08/09/23 05:30 Rx nitroglycerin 0.4 mg sublingual 0.4 mg sublingual Q5M PRN chest 03/08/23 08/09/23 Unknown Rx tablet pain 30 days #30 tabs albuterol sulfate 90 mcg/actuation 2 puff inhalation QID PRN 07/14/23 08/09/23 Unknown Rx aerosol inhaler shortness of breath or wheezing #8.5 grams tiotropium 2.5 mcg-olodaterol 2.5 2 puff inhalation DAILY #4 grams 07/14/23 08/09/23 Unknown Rx mcg/actuation mist for inhalation (Stiolto Respimat) amoxicillin 500 mg tablet 500 mg PO QID 08/09/23 08/09/23 08/09/23 05:30 History Allergies Allergy/AdvReac Type Severity Reaction Status Date / Time clavulanic acid Allergy Intermediate ALGY-Hives Verified 07/14/23 08:46 [From Augmentin] PFSH Acute PFSH: Medical History Uric acid urolithiasis Abuse of smoked substance Dyslipidemia (high LDL; low HDL) Benign essential HTN CARVALHO (dyspnea on exertion) Renal calculus, bilateral Surgical History Hx of circumcision History of hand surgery RIGHT Hx of cataract surgery PROSTHETIC LENS PLACED History of rotator cuff surgery BILATERAL Family History Other CAD (coronary artery disease) Diabetes Postsurgical cardiac pacemaker in situ Social History Smoking and tobacco/nicotine status: current every day tobacco/nicotine user (1.5 ppd) cigarettes Packs smoked per day: 1.5 Years cigarettes smoked: 50 [ Other cigarette details: started at age 14 years.] Quit status (tobacco/nicotine): not considering quitting Second hand smoke exposure: Yes Alcohol intake: current Substance/Drug Use: never Adopted: No Caregiver/support person: No Lives independently: No Household members: spouse Marital status: Current occupational status: employed Vitals/I&O/Wt Last Vital Signs Temp 98.1 F 08/09/23 07:59 Pulse 70 08/09/23 07:59 Resp 18 08/09/23 07:59 BP 146/93 08/09/23 07:59 Pulse Ox 96 08/09/23 07:59 O2 Del Method Room Air 08/09/23 07:59 Weight last 48 hrs Weight 215 lb Physical Exam Narrative: GENERAL: The patient is alert and oriented times three. Not in any acute distress. HEENT: No significant pallor, icterus or lymphadenopathy.Oral cavity: There are no mucous membrane lesions. NECK: Trachea appears to be central. No masses noted. No JVD or thyromegaly appreciated. RESPIRATORY: Chest is symmetrical. No intercostals muscle retraction or any accessory muscle activation. There is no chest wall tenderness. Breath sounds are heard bilaterally. No rales or rhonchi heard. No evidence of any consolidation. BREASTS: Deferred. HEART: The heart sounds are normal. No S3 or S4. No significant murmurs. No pericardial rub ABDOMEN: No vessel pulsations or distention. No tenderness. No organomegaly appreciated. Bowel sounds are normally heard. : Deferred. RECTAL: Deferred. LYMPHATIC: No lymphadenopathy noted in the neck. EXTREMITIES: No edema or cyanosis. No clubbing. MUSCULOSKELETAL: No acute joint deformities or swelling SKIN: There are no significant rashes or ecchymosis NEUROPSYCHIATRIC: The patient is alert and oriented x3. Appears to be in a good mood. No tremors or rigidity noted. Data 08/09/23 07:45 08/09/23 07:45 Other Labs: Laboratory Last Values WBC 14.99 10^3/uL (3.29-11.43) H 08/09/23 07:45 RBC 6.07 10^6/uL (3.85-5.65) H 08/09/23 07:45 Hgb 18.90 g/dL (11.27-16.99) H 08/09/23 07:45 Hct 56.0 % (37-53) H 08/09/23 07:45 MCV 92.3 fl (82-101) 08/09/23 07:45 MCH 31.1 pg (27-33) 08/09/23 07:45 MCHC 33.8 g/dL (30-55) 08/09/23 07:45 RDW 14.7 % (12.1-15.1) 08/09/23 07:45 Plt Count 239 10^3/cmm (157-399) 08/09/23 07:45 MPV 10.3 fL (7.4-10.4) 08/09/23 07:45 Neut % (Auto) 63.0 % 08/09/23 07:45 Lymph % (Auto) 22.5 % 08/09/23 07:45 [place] % (Auto) 8.0 % 08/09/23 07:45 Eos % (Auto) 1.3 % 08/09/23 07:45 Baso % (Auto) 0.7 % 08/09/23 07:45 Neut # (Auto) 9.44 10^3/uL (1.8-7.7) H 08/09/23 07:45 Lymph # (Auto) 3.4 10^3/uL (0.8-4.8) 08/09/23 07:45 [place] # (Auto) 1.2 10^3/uL (0.2-0.9) H 08/09/23 07:45 Eos # (Auto) 0.2 10^3/uL (0.0-0.8) 08/09/23 07:45 Baso # (Auto) 0.1 10^3/uL (0.0-0.1) 08/09/23 07:45 Nucleated RBC % (auto) 0 % 08/09/23 07:45 Nucleated RBCs # 0.0 /100WBC 08/09/23 07:45 Sodium 138 mmol/L (136-145) 08/09/23 07:45 Potassium 3.4 mmol/L (3.5-5.1) L 08/09/23 07:45 Chloride 99 mmol/L (98-107) 08/09/23 07:45 Carbon Dioxide 29 mmol/L (22-29) 08/09/23 07:45 Anion Gap 13.4 (5-19) 08/09/23 07:45 BUN 27 mg/dL (8-23) H 08/09/23 07:45 Creatinine 1.0 mg/dL (0.7-1.2) 08/09/23 07:45 GFR Calculation 73.9 mL/min (90-130) L 08/09/23 07:45 Glucose 131 mg/dL (65-115) H 08/09/23 07:45 Calculated Osmolality 293 mOsm/kg (285-295) 08/09/23 07:45 Calcium 9.4 mg/dL (8.5-10.5) 08/09/23 07:45 Other data: EKG on 03/01/2023 Sinus rhythm with a possible left atrial lodgment. T inversion in leads I and aVL, suggestive of high lateral wall ischemia Myocardial perfusion imaging on 2019 normal left ventricular size and systolic function, EF 55 %. Grade I/IV diastolic dysfunction (abnormal relaxation filling pattern), normal to mildly elevated filling pressures. Mildly increased left atrial size. Thickened aortic and mitral valves. There is no pericardial effusion. There are no intracardiac masses. No previous study is available for comparison. Echocardiogram on 05/01/2020 CONCLUSIONS Normal left ventricular size and systolic function, EF 55 %. Grade I/IV diastolic dysfunction (abnormal relaxation filling pattern), normal to mildly elevated filling pressures. Mildly increased left atrial size. Thickened aortic and mitral valves. There is no pericardial effusion. There are no intracardiac masses. No previous study is available for comparison. A&P Assessment and plan (1) CARVALHO (dyspnea on exertion): This could be multifactorial. He is ongoing smoking abuse, obstructive sleep apnea, LV dysfunction/ischemia are considerations. (2) Benign essential HTN: Blood pressure is a stage II. Need to optimize antihypertensive medications. (3) Dyslipidemia (high LDL; low HDL): May continue on the current medications. (4) Nicotine dependence, cigarettes, uncomplicated: Patient is not willing to quit (5) Abnormal EKG: T inversions in the high lateral leads, suggestive of ischemia (6) Atherosclerotic heart disease of [place] coronary artery with other forms of angina pectoris: Patient had a cardiac realization many years ago at [facility]. Was told to have around 50% lesion. Plan Elevated white cell count, possibly from steroid Elevated BUN, also could be related due to steroid. For further evaluation of his coronary status, a cardiac catheterization would be appropriate. The risk of bleeding, hematoma, vascular injury, myocardial infarction, myocardial perforation, malignant cardiac arrhythmias ,CVA, renal failure and other concomitant complications were explained in detail. Because of the elevated BUN, he may carry a higher risk for contrast-induced nephropathy. Patient will be carefully hydrated. Based on the results of the above test result, further management decisions will be made Attestations Medical Necessity Statement*: Patient may require overnight stay Coding Level of Care Code 75914 Diagnoses CARVALHO (dyspnea on exertion) R06.00 Benign essential HTN I10 Dyslipidemia (high LDL; low HDL) E78.5 Nicotine dependence, cigarettes, uncomplicated F17.210 Abnormal EKG R94.31 Atherosclerotic heart disease of [place] coronary artery with other forms of angina pectoris I25.118
[2023-08-09 08:10] LABS: Anion Gap 13.4 (5-19); Blood Urea Nitrogen 27 mg/dL (8-23); Calcium 9.4 mg/dL (8.5-10.5); Carbon Dioxide 29 mmol/L (22-29); Chloride 99 mmol/L (98-107); Creatinine Clr Calc Pharmacy 76.4836; Glomerular Filtration Rate 73.9 mL/min (90-130); Glucose 131 mg/dL (65-115); Osmolality Calculated 293 mOsm/kg (285-295); Potassium 3.4 mmol/L (3.5-5.1); Sodium 138 mmol/L (136-145)
--- NOTE | 2023-08-09 08:14 | P.HPUD_ITS ---
Surgery/Procedure H&P Update DATE OF PROCEDURE: August 09, 2023 DATE H&P PERFORMED: 08/09/23 H&P UPDATE INFORMATION: I have reviewed H&P completed within last 30 days, I have examined patient prior to procedure and No changes to prior documentation PREOP DIAGNOSIS: ASHD PRIMARY INDICATION FOR PROCEDURE: Increasing shortness of breath, abnormal EKG, abnormal Myocardial perfusion imaging, atypical chest symptoms, history of ASHD PLANNED PROCEDURE: Operation Date: 08/09/23 08:30 Proposed Procedures p [facility] [id number] I10, R06.0,I25.10,(Left) - Jessica Mujica MD PATIENT REASSESSED PRIOR TO SEDATION, WITH NO CHANGE NOTED: Yes PHYSICAL EXAM: alert, oriented x 3 and clear to auscultation bilaterally AIRWAY EVAL/ANESTHESIA PLAN: normal airway, see other exam findings and ASA III
--- NOTE | 2023-08-09 09:58 | PC.NURSE ---
On arrival to CPRU room 3 post cath, patient had hematoma formation. Direct pressure applied. 2nd TR band placed with 10 ml air. Hemostasis achieved. Radial pulse palpable. Pt denies numbness or tingling to hand. Denies pain. Pt placed on bedside monitor car operator.
[2023-08-09] MEDS: ipratropium-albuterol 3 mL Neb INHALATION (11:35)
[2023-08-09] MEDS: oxyCODONE-APAP 5-325 mg Tablet 1 TAB PO (13:14)
[2023-08-09] MEDS: amoxicillin 500 mg Capsule PO (13:34)
[2023-08-09 13:53] LABS: Chol HDL Ratio 4.16 mg/dL (1.0-5.00); Cholesterol 229 mg/dL (0-200); HDL Cholesterol 55 mg/dL (60-100); LDL Cholesterol Calculated 149 mg/dL (50-129); LDL HDL Ratio 2.71 RATIO (0.00-3.22); Triglycerides 123 mg/dL (0-150)
--- NOTE | 2023-08-09 14:30 | PC.NURSE ---
Patient resented to CSU from woods laborer with 2 TR-bands to the right radial area. Air is removed from both TR-bands as follows: 2ml's at 1145, 2ml's at 1230, 2ml's at 1245, 2ml's at 1319, 2ml's at 1336, 2ml's at 1350, upper TR-band is removed and 2ml's at 1409, 2ml's at 1425, TR-band is removed at 1435. No hematoma since getting to the floor. Dressing of 2x2 and tegaderm is applied. Patient tolerated well.
--- NOTE | 2023-08-09 15:51 | PC.NURSE ---
Patient is leaving via a private car with his spouse.
== END 2023-08-09 16:00 | disposition home or self-care (01) ==
LOC: CCL 07:28 → CSU 12:40
PROVIDERS: Internal Medicine; PCP Nurse Practitioner; Visit Provider Internal Medicine Cardiovascular Disease
DX: I25.118 Atherosclerotic heart disease of native coronary artery with other forms of angina pectoris (principal); I25.82 Chronic total occlusion of coronary artery; E78.5 Hyperlipidemia, unspecified; I10 Essential (primary) hypertension; F17.210 Nicotine dependence, cigarettes, uncomplicated; R94.31 Abnormal electrocardiogram [ECG] [EKG]; E66.9 Obesity, unspecified; Z68.33 Body mass index [BMI] 33.0-33.9, adult; G47.33 Obstructive sleep apnea (adult) (pediatric); Z79.52 Long term (current) use of systemic steroids
CPT/HCPCS: 36415; 80048; 80061; 85025; 85347; 93458; 93571; 94640; 96361; 96365; 99152; 99153; C1769; C1887; C1894; J1644; J2250; J3010; J3490; J7030; Q0163; Q9967

== ENCOUNTER 2023-08-12 05:56 | Day surgery (SDC) | payer MEDICARE, SELFPAY ==
[2023-08-12 06:17] VITALS: BP 111/71; PULSE 75; RESP 16; TEMP 36.4; O2SAT 95; BMI 32.8
[2023-08-12] MEDS: sodium chloride 0.9% 1,000 ML 30 ML IV (06:30)
--- NOTE | 2023-08-12 06:37 | W.PM.OPSFHP ---
Same Day Surgery H&P Indication for Procedure/HPI DATE OF PROCEDURE: August 12, 2023 CHIEF COMPLAINT/INDICATIONFOR SURGICAL PROCEDURE: need for screening colonoscopy PREOP DIAGNOSIS: need for screening colonoscopy PLANNED PROCEDURE: Operation Date: 08/12/23 07:00 Proposed Procedures p 71600 colonoscopy G0121 colon a risk Z12.11(Not Applicable) - Nilton Segovia MD Medications/Allergies* Home Medications Medication Instructions Recorded Confirmed Type oxycodone-acetaminophen 5 mg-325 1 tab PO TID PRN Pain 07/13/19 08/12/23 History mg tablet (Percocet) hydrochlorothiazide 25 mg tablet 25 mg PO QAM 03/01/23 08/12/23 History trazodone 100 mg tablet 50 mg PO BEDTIME 03/01/23 08/12/23 History amoxicillin 500 mg tablet 500 mg PO QID 08/09/23 08/12/23 History Allergies/Adverse Reactions Allergy/AdvReac Type Severity Reaction Status Date / Time clavulanic acid Allergy Intermediate ALGY-Hives Verified 08/10/23 10:27 [From Augmentin] Current Medications: Generic Name Dose Route Start Last Admin Trade Name Freq PRN Reason Stop Dose Admin Sodium Chloride 1,000 mls @ 30 mls/hr 08/12/23 06:15 08/12/23 06:30 Sodium Chloride 0.9% IV 30 mls/hr .Q24H DORON Administration Pertinent History/Comorbid Conditions* Medical History (Updated 08/10/23 @ 00:00 by LEIGH ANN Villa) Uric acid urolithiasis Abuse of smoked substance Dyslipidemia (high LDL; low HDL) Benign essential HTN CARVALHO (dyspnea on exertion) Renal calculus, bilateral Surgical History (Updated 09/15/21 @ 09:48 by Mauro Gill MD) Hx of circumcision History of hand surgery RIGHT Hx of cataract surgery PROSTHETIC LENS PLACED History of rotator cuff surgery BILATERAL Family History (Updated 04/10/20 @ 10:26 by Nora Rutherford RN) Diabetes CAD (coronary artery disease) Postsurgical cardiac pacemaker in situ Social History Smoking and tobacco/nicotine status: current every day tobacco/nicotine user (1.5 ppd) cigarettes Packs smoked per day: 1.5 Years cigarettes smoked: 50 [ Other cigarette details: started at age 14 years.] Quit status (tobacco/nicotine): not considering quitting Second hand smoke exposure: Yes Alcohol intake: current Substance/Drug Use: never Adopted: No Caregiver/support person: No Lives independently: No Household members: spouse Marital status: Current occupational status: employed Pertinent Exam Findings alert, oriented x 3 and clear to auscultation bilaterally Recommendations Surgery/Procedure today Coding Level of Care Code Acute Code for Chg Fwd
--- NOTE | 2023-08-12 07:02 | ANES.PREANE2 ---
Pre-Anesthetic Assessment Height/Weight: Height 1.7 m Weight 95.254 kg Temp Pulse Resp BP Pulse Ox O2 Del Method 97.5 F L 75 16 111/71 95 Room Air 08/12/23 06:17 08/12/23 06:17 08/12/23 06:17 08/12/23 06:17 08/12/23 06:17 08/12/23 06:17 Preop Diagnosis: need for screening colonoscopy Operation Date: 08/12/23 07:00 Proposed Procedures p 20381 colonoscopy G0121 colon a risk Z12.11(Not Applicable) - Nilton Segovia MD Was Beta Tamia taken within 24 hours: N/A Was Clonidine taken within 24 hours: N/A Last intake: Intake Last Liquid Date 08/11/23 Last Liquid Time 19:00 Last Solid Date 08/10/23 Last Solid Time 19:00 Social Alcohol and Tobacco Exam alert, oriented x 3, clear to auscultation bilaterally and regular rate & rhythm Airway Submandibular: within normal limits Cervical ROM: within normal limits Mallampati: Class II Dentition: full History/ROS No significant history except as noted and No significant complaints Pulmonary Chronic Obstructive Pulmonary Disease CV/HEM Coronary Artery Disease and Hypertension Hx stones Hepatic None reported GI None reported Metabolic None reported Musc/skel Lower Back Pain and Osteoarthritis/DJD Neuropsych None reported Anesthetic Plan ASA status: 3 Anesthesia: Anesthesia Evaluation and MAC Risk of > 500 ml blood loss (7ml/kg in children): No Medications/Allergies Home Medications Medication Instructions Recorded Confirmed Last Taken Type oxycodone-acetaminophen 5 mg-325 1 tab PO TID PRN Pain 07/13/19 08/12/23 08/12/23 History mg tablet (Percocet) hydrochlorothiazide 25 mg tablet 25 mg PO QAM 03/01/23 08/12/23 08/12/23 History trazodone 100 mg tablet 50 mg PO BEDTIME 03/01/23 08/12/23 08/11/23 History metoprolol tartrate 25 mg tablet 25 mg PO BID 30 days #60 tabs 03/08/23 08/12/23 08/12/23 Rx nitroglycerin 0.4 mg sublingual 0.4 mg sublingual Q5M PRN chest 03/08/23 08/10/23 Unknown Rx tablet pain 30 days #30 tabs amoxicillin 500 mg tablet 500 mg PO QID 08/09/23 08/12/23 08/11/23 History rosuvastatin 10 mg tablet (Crestor) 10 mg PO DAILY #30 tabs 08/09/23 08/10/23 Unknown Rx Allergies Allergy/AdvReac Type Severity Reaction Status Date / Time clavulanic acid Allergy Intermediate ALGY-Hives Verified 08/10/23 10:27 [From Augmentin] Current Medications Generic Name Dose Route Start Last Admin Trade Name Jared PRN Reason Stop Dose Admin Sodium Chloride 1,000 mls @ 30 mls/hr 08/12/23 06:15 08/12/23 06:30 Sodium Chloride 0.9% IV 30 mls/hr .Q24H DORON Administration PFSH Anesthesia Medical History Uric acid urolithiasis Abuse of smoked substance Dyslipidemia (high LDL; low HDL) Benign essential HTN CARVALHO (dyspnea on exertion) Renal calculus, bilateral Surgical History Hx of circumcision History of hand surgery RIGHT Hx of cataract surgery PROSTHETIC LENS PLACED History of rotator cuff surgery BILATERAL Family History Other CAD (coronary artery disease) Diabetes Postsurgical cardiac pacemaker in situ Social History Smoking and tobacco/nicotine status: current every day tobacco/nicotine user (1.5 ppd) cigarettes Packs smoked per day: 1.5 Years cigarettes smoked: 50 [ Other cigarette details: started at age 14 years.] Quit status (tobacco/nicotine): not considering quitting Second hand smoke exposure: Yes Alcohol intake: current Substance/Drug Use: never Adopted: No Caregiver/support person: No Lives independently: No Household members: spouse Marital status: Current occupational status: employed Data Anesthesia Cardiac Studies: Echocardiogram Ultrasound 05/01/20 Sestamibi Stress Test (Cardiology) 05/01/20
[2023-08-12 07:29] VITALS: BP 93/64; PULSE 63; RESP 18; TEMP 36.4; O2SAT 92
[2023-08-12 07:49] VITALS: BP 128/89; PULSE 64; RESP 16; O2SAT 93
--- NOTE | 2023-08-12 14:21 | ANE.PACU2 ---
Inpatient post-anesthesia follow up: Airway intact: Yes Vital signs: Temperature 97.5 F Pulse Rate 64 Respiratory Rate 16 Blood Pressure 128/89 Pulse Oximetry 93 Oxygen Delivery Me thod Room Air Oxygen Flow Rate 4 Fraction of Inspir ed Oxygen Hydration adequate: Yes Nausea and vomiting: No Pain level: 2 Mental status: Baseline
== END 2023-08-12 07:55 | disposition home or self-care (01) ==
PROVIDERS: PCP Nurse Practitioner; Visit Provider Surgery
PROC: 0DJD8ZZ Inspection of Lower Intestinal Tract, Via Natural or Artificial Opening Endoscopic (ICD-10-PCS; CPT 45378; principal; 2023-08-12 07:00)
DX: Z12.11 Encounter for screening for malignant neoplasm of colon (principal); K57.30 Diverticulosis of large intestine without perforation or abscess without bleeding; K64.8 Other hemorrhoids; E78.5 Hyperlipidemia, unspecified; I10 Essential (primary) hypertension; F17.210 Nicotine dependence, cigarettes, uncomplicated; J44.9 Chronic obstructive pulmonary disease, unspecified; I25.10 Atherosclerotic heart disease of native coronary artery without angina pectoris
CPT/HCPCS: G0121; J2704; J7030

== ENCOUNTER → 2023-08-25 12:35 | Outpatient (BNVA) | payer MEDICARE, SELFPAY | PROVIDERS: PCP Nurse Practitioner; Visit Provider Nurse Practitioner Family | DX: I25.118 Atherosclerotic heart disease of native coronary artery with other forms of angina pectoris (principal); F17.210 Nicotine dependence, cigarettes, uncomplicated; I10 Essential (primary) hypertension | CPT/HCPCS: 36415; 80048; 99213 ==

== ENCOUNTER → 2023-10-11 08:45 | Outpatient (BNVA) | payer MEDICARE, OTHER, SELFPAY | PROVIDERS: PCP Nurse Practitioner; Visit Provider Internal Medicine Pulmonary Disease | DX: G47.33 Obstructive sleep apnea (adult) (pediatric) (principal); J42 Unspecified chronic bronchitis; F17.210 Nicotine dependence, cigarettes, uncomplicated | CPT/HCPCS: 99214 ==

== ENCOUNTER 2023-10-28 07:50 | Outpatient (CLI) | payer MEDICARE, SELFPAY ==
--- NOTE | 2023-10-28 08:00 | CT_ITS ---
WS: [id number] LDCT LUNG CANCER SCREENING TECHNIQUE: Noncontrast CT of the chest with coronal and sagittal reformatted images. CLINICAL INFORMATION: Cancer Screen COMPARISON: 10/26/2022 DLP: 98.67 mGy.cm DIvol: Mean CTDIvol: 1.90 (mGy) All CT scans at [facility] use at least one of these dose optimization techniques: automat ed exposure control; mA and/or kV adjustment per patient size (includes targeted exams where dose is matched to clinical indication); or iterative reconstruction. FINDINGS: A few tiny 3 to 4 mm subpleural nodules LEFT upper lobe unchanged from previous. No new suspicious pu lmonary parenchymal opacities. No mediastinal or hilar lymphadenopathy. Normal caliber thoracic aorta. Aortic calcification. Coronary calcification. No mediastinal or hilar lymphadenopathy. No axillary lymphadenopathy. Adrenal glands are normal. Normal noncontrast pancreas. Normal GE junction. Hypertrophic changes thor acic spine. CT/CT lung screening [id number] IMPRESSION: LUNG-RADS: 2-Benign Appearance or Behavior FOLLOW UP: 12 Month: Continue annual screening with LDCT
== END 2023-10-28 07:51 | disposition home or self-care (01) ==
PROVIDERS: PCP Nurse Practitioner; Visit Provider Internal Medicine Pulmonary Disease
DX: F17.210 Nicotine dependence, cigarettes, uncomplicated (principal); Z12.2 Encounter for screening for malignant neoplasm of respiratory organs
CPT/HCPCS: 71271

== ENCOUNTER → 2024-02-09 12:29 | Outpatient (BNVA) | payer MEDICARE, SELFPAY | PROVIDERS: PCP Nurse Practitioner; Visit Provider Internal Medicine Cardiovascular Disease | DX: R06.02 Shortness of breath (principal) | CPT/HCPCS: 36415; 80048 ==

== ENCOUNTER 2025-02-28 09:14 | Outpatient (CLI) | payer MEDICARE, SELFPAY ==
--- NOTE | 2025-02-28 09:22 | CT_ITS ---
WS: [id number] LDCT LUNG CANCER SCREENING HISTORY: NICOTINE DEPENDENCE, CIGARETTES TECHNIQUE: Axial imaging performed from the apices to 1 cm below the costophrenic angles. Coronal and sagittal reformats are submitted with axial MIP series. All CT scans at [facility] use at least one of these dose optimization techniques: automated exposure control; mA and/or kV adjustment per patient size (includes targeted exams where dose is matched to clinical indication); or iterative reconstruction. DLP: 89.69 mGy.cm DIvol: Mean CTDIvol: 1.80 (mGy) COMPARISON: 10/28/2023 Diagnostic quality: Satisfactory Lungs: Mild pulmonary hyperexpansion. Very tiny micronodules periphery LEFT upper lobe. No enlarging or dominant nodule. No mass or pneumonia. No endobronchial lesions. Heart: Normal size heart with no pericardial effusion.. Other findings: Mild atherosclerosis aorta. Normal size aorta and pulmonary artery. No mediastinal or hilar adenopathy. Normal adrenal glands. RIGHT lateral mid thoracic spine hypertrophic osteophytosis. CT/CT lung screening [id number] IMPRESSION: LUNG-RADS: 2-Benign Appearance or Behavior FOLLOW UP: 12 Month: Continue annual screening with LDCT OTHER FINDINGS (S MODIFIER): None.
== END 2025-02-28 09:15 | disposition home or self-care (01) ==
LOC: RAD 09:17
PROVIDERS: PCP Nurse Practitioner; Visit Provider Nurse Practitioner Family
DX: Z12.2 Encounter for screening for malignant neoplasm of respiratory organs (principal); F17.210 Nicotine dependence, cigarettes, uncomplicated
CPT/HCPCS: 71271

== ENCOUNTER → 2025-04-12 07:56 | Outpatient (BNVA) | payer OTHER, MEDICARE, SELFPAY | PROVIDERS: PCP Nurse Practitioner; Visit Provider Dermatology | DX: L82.1 Other seborrheic keratosis (principal); L72.0 Epidermal cyst; L57.8 Other skin changes due to chronic exposure to nonionizing radiation; D48.5 Neoplasm of uncertain behavior of skin; L57.0 Actinic keratosis | CPT/HCPCS: 11102; 17000; 99203 ==

== ENCOUNTER → 2025-05-14 13:08 | Outpatient (BNVA) | payer OTHER, SELFPAY | PROVIDERS: PCP Family Medicine; Visit Provider Dermatology | DX: C44.319 Basal cell carcinoma of skin of other parts of face (principal) | CPT/HCPCS: 12052; 17311 ==